=== PATIENT | female | born 1940 | race Two or more races ===

== ENCOUNTER 2020-12-06 04:30 | Emergency (ER) | payer OTHER ==
[~2020-12-06] VITALS: Ht 162.6 cm; Wt 68.0 kg
[2020-12-06] MEDS ORDERED: NEURONTIN600 M1 (05:04)
[2020-12-06] MEDS ORDERED: ELIQUIS5 M1 (05:05)
[2020-12-06] MEDS ORDERED: CLONAZEPAM0.5 MG (05:05)
[2020-12-06] MEDS ORDERED: TOPROL XL25 M1 (05:05)
[2020-12-06] MEDS ORDERED: ARICEPT5 MG (05:06)
[2020-12-06] MEDS ORDERED: IRBESARTAN-HCT1 EAC1 (05:06)
[2020-12-06] MEDS ORDERED: PEPCID AC20 MG (05:06)
[2020-12-06] MEDS ORDERED: FLECAINIDE ACET50 MG (05:06)
[2020-12-06] MEDS ORDERED: SYNTHROID88 MCG (05:06)
[2020-12-06] MEDS ORDERED: MAXIMUM DAILY1 EACH (05:07)
[2020-12-06] MEDS ORDERED: BENTYL10 MG/1 ML (05:07)
[2020-12-06] MEDS ORDERED: ZINC50 M1 (05:07)
== END 2020-12-06 15:05 | disposition designated cancer center or children's hospital (05) ==
LOC: ER 04:30 → CPU-OBS 04:52 → ER 04:52
DX: R07.89 Other chest pain (principal); I16.0 Hypertensive urgency; I10 Essential (primary) hypertension; R53.1 Weakness